=== PATIENT | female | born 1995 | race African-American/Black ===

== ENCOUNTER 2018-04-03 22:15 | Emergency (ER) | payer OTHER ==
[~2018-04-03] VITALS: Ht 167.6 cm; Wt 75.7 kg
[2018-04-03 22:15] VITALS: BP 125/76
[2018-04-03] MEDS ORDERED: diphenhydrAMINE HCL 50 MG/ML VIAL ONE (22:35)
[2018-04-03] MEDS ORDERED: diphenhydrAMINE HCL 50 MG/ML VIAL IM ONE (23:00)
[2018-04-03] MEDS ORDERED: DEXAMETHASONE SOD PHOSPHATE 10 MG/ML VIAL ONE (23:28)
[2018-04-03] MEDS ORDERED: DEXAMETHASONE SOD PHOSPHATE 4 MG/ML VIAL IM ONE (23:30)
== END 2018-04-04 00:20 | disposition home or self-care (01) ==
LOC: ER 22:17
DX: L50.9 Urticaria, unspecified (principal)
CPT/HCPCS: A4606; J1100; J1200; Z7610